=== PATIENT | female | born 1955 | race Caucasian/White ===

== ENCOUNTER 2017-11-30 10:44 | Emergency (ER) | payer MEDICARE, OTHER ==
--- NOTE | 2017-11-30 12:05 | EDM.PDOC ---
ED HPI GENERAL MEDICAL PROBLEM - General Chief Complaint: Back Pain or Injury Stated Complaint: BACK PAIN/FELL Time Seen by Provider: 11/30/17 11:55 Source of Information: Reports: Patient History Limitations: Reports: No Limitations - History of Present Illness INITIAL COMMENTS - FREE TEXT/NARRATIVE: Yesterday, fell in the yard, fell face forward and back ached and has low back pain now; Took Percocet without relief and used ice; hx of vertebral fracture in 2010. No numbness or tingling into the legs. Left leg has some sciatica pain. Hx of using chiropractic in the past. Hx of colon cancer, stage 4. Onset Date: 11/29/17 Duration: Day(s): (1) Location: Reports: Back Quality: Reports: Stabbing Severity: Moderate Improves with: Reports: Immobilization Worsens with: Reports: Movement Treatments [employer]: Reports: Cold Therapy, Other (see below) Lower Back Pain Score (Numeric/FACES): 10 - Related Data Allergies Allergy/AdvReac Type Severity Reaction Status Date / Time acetaminophen [From Vicodin] Allergy Rash Verified 11/30/17 12:05 hydrocodone [From Vicodin] Allergy Rash Verified 11/30/17 12:05 Penicillins Allergy Swelling Verified 11/30/17 12:05 ED ROS GENERAL - Review of Systems Review Of Systems: ROS reveals no pertinent complaints other than HPI. ED EXAM, GENERAL - Physical Exam Exam: See Below Exam Limited By: No Limitations General Appearance: Alert, WD/WN, No Apparent Distress Neck: Full Range of Motion Respiratory/Chest: No Respiratory Distress, Lungs Clear, Normal Breath Sounds, No Accessory Muscle Use Cardiovascular: Regular Rate, Rhythm GI/Abdominal: Normal Bowel Sounds Back Exam: Decreased Range of Motion, Vertebral Tenderness Extremities: Normal Inspection, Normal Range of Motion Neurological: Alert, Oriented, CN II-XII Intact, Normal Cognition, Normal Gait, Normal Reflexes, No Motor/Sensory Deficits Psychiatric: Normal Affect, Normal Mood Skin Exam: Warm, Dry, Intact, Normal Color Course - Vital Signs Last Recorded V/S: Last Vital Signs Temp 97.0 F 11/30/17 12:03 Pulse 62 11/30/17 12:03 Resp 16 11/30/17 12:03 BP 173/86 H 11/30/17 12:03 Pulse Ox 95 11/30/17 12:03 - Orders/Labs/Meds Meds: Medications Discontinued Medications Generic Name Dose Route Start Last Admin Trade Name Renetta PRN Reason Stop Dose Admin Hydromorphone HCl 1 mg 11/30/17 12:12 11/30/17 12:32 Dilaudid IM 11/30/17 12:13 1 mg ONETIME ONE Administration - Re-Assessments/Exams Free Text/Narrative Re-Assessment/Exam: 11/30/17 15:30 xray of lumbar areas shows no acute vertebral fractures. Departure - Departure Time of Disposition: 13:20 Disposition: Home, Self-Care 01 Condition: Good Clinical Impression: Low back pain - Discharge Information Instructions: Back Pain, Adult Referrals: PCP,None [Primary Care Provider] - Forms: ED Department Discharge Additional Instructions: Ice to affected area Ibuprofen 400-600 mg every 8 hours with food Percocet with food; do not drink alcohol or drive while taking FU with your primary doctor; may need further work up.
[2017-11-30] MEDS ORDERED: HYDROmorphone 1 MG/ML Syringe IM ONE (12:12)
--- NOTE | 2017-11-30 12:51 | CR ---
Lumbar Spine 2 or 3V INDICATION: fell, hx of vertebral fx thinks L3 COMPARISON: No comparison studies at the time of this report FINDINGS: 4 views. Study limited by patient body habitus. 5 lumbar-type vertebra. Minimal compression T12, L3 and L4 vertebral bodies, age indeterminate. No other compression deformities seen. Slight anterolisthesis L3 on L4 and retrolisthesis L4 on L5, which may be on a degenerative basis. Multilevel degenerative disc disease and hypertrophic change. Left convex curvature of the lumbar spine. Comparison with prior outside studies would be helpful. If none, MR lumbar spine would be helpful to assess for any acute injury.
== END 2017-11-30 13:22 | disposition home or self-care (01) ==
LOC: JP.ED 10:44
DX: M54.5 Low back pain (principal); Z88.0 Allergy status to penicillin; Z88.5 Allergy status to narcotic agent
CPT/HCPCS: 72100; 96372; 99284; J1170